=== PATIENT | female | born 2000 | race African-American/Black ===

== ENCOUNTER 2018-01-25 16:10 | Emergency (ER) | payer SELFPAY ==
[~2018-01-25] VITALS: Ht 160 cm; Wt 88.6 kg
[2018-01-25 16:16] VITALS: Ht 160 cm; Wt 88.6 kg
[2018-01-25] MEDS ORDERED: OMNICEF300 MG PO (17:14)
[2018-01-25] MEDS ORDERED: MEDROL DOSE PACK4 MG PO (17:14)
[2018-01-25 17:31] VITALS: BP 119/76
[2018-02-02 20:06] LABS: AEROBE ID Final report (())
== END 2018-01-25 17:32 | disposition home or self-care (01) ==
LOC: D.ER 16:10
PROVIDERS: Emergency Medicine
DX: J02.9 Acute pharyngitis, unspecified (principal); J06.9 Acute upper respiratory infection, unspecified

== ENCOUNTER 2021-02-01 09:38 | Emergency (ER) | payer SELFPAY ==
[~2021-02-01] VITALS: Ht 160 cm; Wt 95.5 kg
[~2021-02-01 09:38] MED LIST: MEDROL DOSE PACK4 MG PO; OMNICEF300 MG PO
[2021-02-01 10:38] VITALS: BP 117/64; Ht 160 cm; Wt 95.5 kg
[2021-02-01 10:46] LABS: HCG URINE NEGATIVE (NEGATIVE)
[2021-02-01 11:06] LABS: WHITE CELLS - URINE >182 HPF (0-4)
[2021-02-01 11:10] LABS: BILIRUBIN NEGATIVE (NEGATIVE); KETONE NEGATIVE mg/dL (< 1+); NITRITE POSITIVE (NEGATIVE); PH 6.5 (5.0-8.0); UROBILINOGEN NORMAL mg/dL (< 2)
[2021-02-01 11:14] LABS: BACTERIA MODERATE HPF (<MOD)
[2021-02-01] MEDS ORDERED: TORADOL10 MG PO (11:58)
[2021-02-01] MEDS ORDERED: ZOFRAN4 MG PO (11:58)
[2021-02-01] MEDS ORDERED: MACROBID100 MG PO (11:58)
== END 2021-02-01 12:35 | disposition home or self-care (01) ==
LOC: D.ER 09:38
PROVIDERS: Family Medicine
DX: N39.0 Urinary tract infection, site not specified (principal)